=== PATIENT | male | born 2000 | race Caucasian/White ===

== ENCOUNTER 2022-01-12 13:07 | Emergency (ER) | payer MEDICAID ==
[~2022-01-12] VITALS: Ht 177.8 cm; Wt 99.8 kg
[2022-01-12 13:10] VITALS: BP 131/82
--- NOTE | 2022-01-12 13:10 | NUR ---
SENT TO ER BED 4. BIB SELF C/O MOUTH INJURY "I ACCIDENTALLY BITING MY CHEEK" BLEEDING SINCE YESTERDAY. VITALS WITHIN NORMAL LIMITS. BREATHING IS EVEN AND UNLABORED. AWAITING MD PHAN.
--- NOTE | 2022-01-12 13:18 | NUR ---
AT BEDSIDE FOR EVAL.
--- NOTE | 2022-01-12 13:35 | NUR ---
Patient discharged to home in stable condition. Written and verbal after care instructions given. Patient verbalizes understanding of instruction.
== END 2022-01-12 13:48 | disposition home or self-care (01) ==
LOC: ER 13:09
DX: K91.841 Postprocedural hemorrhage of a digestive system organ or structure following other procedure (principal)
CPT/HCPCS: 99282; A6403

== ENCOUNTER 2023-01-06 16:35 | Emergency (ER) | payer MEDICAID ==
[~2023-01-06] VITALS: Ht 177.8 cm; Wt 98.9 kg
--- NOTE | 2023-01-06 16:50 | NUR ---
C/O SORETHROAT X 1 MONTH. DENIES CP. DENIES SOB. VSS. AAOX4.
--- NOTE | 2023-01-06 17:45 | NUR ---
Strep swab done and sent to lab.
[2023-01-06] MEDS ORDERED: IBUP-1955 PO (17:51)
--- NOTE | 2023-01-06 18:17 | NUR ---
PT ELOPED WITHOUT RECIEVING DISCHARGE INSTRUCTIONS.
[2023-01-06 18:20] VITALS: BP 122/62
== END 2023-01-06 18:20 | disposition home or self-care (01) ==
LOC: ER 16:47
DX: R07.0 Pain in throat (principal); Z79.1 Long term (current) use of non-steroidal anti-inflammatories (NSAID)
CPT/HCPCS: 86403-TC

== ENCOUNTER 2025-06-12 08:45 | Emergency (ER) | payer MEDICAID, OTHER ==
[~2025-06-12] VITALS: Ht 177.8 cm; Wt 99.8 kg
[~2025-06-12 08:45] MED LIST: IBUP-1955 PO
[2025-06-12 08:54] VITALS: BP 131/61; TEMP 98
[2025-06-12] MEDS ORDERED: IBUPROFEN 600 MG TABLET ONE (09:39)
[2025-06-12] MEDS: IBUPROFEN 600 MG TABLET PO ONE (09:41)
[2025-06-12 09:48] VITALS: O2SAT 98
== END 2025-06-12 09:49 | disposition home or self-care (01) ==
LOC: ER 08:45
DX: M25.522 Pain in left elbow (principal); W18.39XA Other fall on same level, initial encounter; Y93.89 Activity, other specified; Y92.89 Other specified places as the place of occurrence of the external cause; Y99.8 Other external cause status
CPT/HCPCS: 73080-TC